=== PATIENT | male | born 1975 | race Caucasian/White ===

== ENCOUNTER 2016-07-07 16:48 | Emergency (ER) | payer BC, OTHER ==
--- NOTE | 2016-07-07 18:16 | UC ---
Skin Complaint HPI - HPI Summary HPI Summary: The patient comes in today for: 1. Right inner thigh: Onset: 1 day. Palliative/provocative: touching it makes it worse. Not touching it makes it better. Quality: Dull burning. Region: Upper inner right thigh. Severity: 3/10 at rest. 7/10 with touching it. Time: Constant. Associated symptoms: Event: He practices [employer] 2 days ago. He stated that he got "knee'ed " in the upper right, anterior thigh. He did not have much pain at that time. However, he noticed more yesterday--last night. He felt a mass. During the day , it did not get any worse. He has not taken anything for it. But the pain has persisted. * - History of Current Complaint Time Seen by Provider: 07/07/16 18:04 Stated Complaint: PERSONAL Hx Obtained From: Patient - Allergy/Home Medications Allergies/Adverse Reactions: Allergies Allergy/AdvReac Type Severity Reaction Status Date / Time No Known Allergies Allergy Verified 07/07/16 18:26 Review of Systems Constitutional: Negative Skin: Negative Eyes: Negative ENT: Negative Respiratory: Negative Cardiovascular: Negative Gastrointestinal: Negative Genitourinary: Negative Musculoskeletal: Arthralgia All Other Systems Reviewed And Are Negative: Yes PMH/Surg Hx/FS Hx/Imm Hx Previously Healthy: Yes - Surgical History Surgical History: None - Family History Known Family History: Negative: Cardiac Disease, Hypertension - Social History Occupation: Employed Full-time Alcohol Use: Weekly Alcohol Amount: 12 Substance Use Type: None Smoking Status (MU): Heavy Every Day Tobacco Smoker Type: Cigarettes Amount Used/How Often: 1/2- 1 ppd Length of Time of Smoking/Using Tobacco: 20 yrs Have You Smoked in the Last Year: Yes Physical Exam Triage Information Reviewed: Yes Appearance: Well-Appearing, No Pain Distress Eyes: Positive: Conjunctiva Clear. Negative: Discharge ENT: Positive: Hearing grossly normal. Negative: Pharyngeal erythema, Nasal congestion, Nasal drainage, TM bulging, TM dull, TM red, Tonsillar swelling, Tonsillar exudate Dental: Negative: Gross Decay/Caries @, Dental Fracture @ Neck: Positive: Supple, Nontender, No Lymphadenopathy. Negative: Nuchal Rigidity Respiratory: Positive: Lungs clear, No respiratory distress, No accessory muscle use. Negative: Crackles, Wheezing Cardiovascular: Positive: RRR, No Murmur Abdomen Description: Positive: Nontender, No Organomegaly, Soft. Negative: Distended, Guarding Musculoskeletal: Positive: Strength Intact, ROM Intact, Other: - In the upper right, anterior thigh, there are no enlarged lymph nodes. There is no ecchymosis or erythema. There is a rounded mass about 1.5 inch in length and 0.5 inch in width. It was at the level of the muscle groups and I was not able to get under it. There was only slight tenderness. Initally, when I had him lay back it did not deflate. There were no varicose veins in the area. He stood again and it stayed the same on exam. However, upon my second examination with him laying down, the mass deflated. Neurological: Positive: Alert, Muscle Tone Normal Psychological: Positive: Normal Response To Family, Age Appropriate Behavior, Consolable Skin: Negative: rashes, breakdown Course/Dx - Course Course Of Treatment: Patient was told that I think he has a right femoral hernia. REcommended that he take pain medication as needed and contact a surgeon for evaluation. - Differential Diagnoses - Skin Complaint Differential Diagnoses: Cellulitis - Diagnoses Provider Diagnoses: Right femoral hernia. Discharge - Discharge Plan Condition: Stable Disposition: HOME Forms: *Work Release Referrals: No Primary Care Phys,NOPCP [Primary Care Provider] - Luis Manuel Lucio MD [Medical Doctor] - As Soon As Possible (Please call Dr. Lucio office tomorow for an evaluation of a possible right femoral hernia. )
[2016-07-07] MEDS ORDERED: Naproxen TAB* 250 MG PO ONE (18:17)
[2016-07-07 18:31] VITALS: BP 113/68
== END 2016-07-07 19:15 | disposition home or self-care (01) ==
LOC: UCCORT 16:48
DX: K41.90 Unilateral femoral hernia, without obstruction or gangrene, not specified as recurrent (principal); Z72.0 Tobacco use
CPT/HCPCS: 99212; A9270-GY; G0463

== ENCOUNTER 2016-07-14 16:27 | Emergency (ER) | payer BC ==
[2016-07-14 16:37] VITALS: BP 118/66
--- NOTE | 2016-07-14 17:03 | UC ---
Respiratory Complaint HPI - HPI Summary HPI Summary: Patient presents to with CC of nasal congestion, sinus pressure, cough with production and fatigue x 3 days. Has not taken anything for the symptoms. He notes being around allergies at work with dust and asbestos. He has had a history of sinus infections as a teenager and hx of allergies, but nothing currently. He denies fevers, but endorses recent sweats and chills. He is otherwise healthy, takes no medications. Cough is not better or worse with lying down. Cough is worse during the day while around particles at work. - History of Current Complaint Chief Complaint: UCRespiratory Stated Complaint: CONGESTION Time Seen by Provider: 07/14/16 16:43 Hx Obtained From: Patient Onset/Duration: Sudden Onset Timing: Constant Severity Initially: Moderate Severity Currently: Moderate Pain Intensity: 2 Pain Scale Used: 0-10 Numeric Character: Cough: Productive Associated Signs And Symptoms: Positive: URI, Nasal Congestion, Sinus Discomfort Related History: Seasonal Allergies - Risk Factors Pulmonary Embolism Risk Factors: Negative Cardiac Risk Factors: Negative Pseudomonas Risk Factors: Negative Tuberculosis Risk Factors: Negative - Allergies/Home Medications Allergies/Adverse Reactions: Allergies Allergy/AdvReac Type Severity Reaction Status Date / Time No Known Allergies Allergy Verified 07/14/16 16:37 PMH/Surg Hx/FS Hx/Imm Hx Previously Healthy: Yes - Surgical History Surgical History: None - Family History Known Family History: Positive: None Negative: Cardiac Disease, Hypertension - Social History Occupation: Employed Full-time Lives: With Family Alcohol Use: Occasionally Alcohol Amount: 12 Substance Use Type: None Smoking Status (MU): Heavy Every Day Tobacco Smoker Type: Cigarettes Amount Used/How Often: 1/2- 1 ppd Length of Time of Smoking/Using Tobacco: 20 yrs Have You Smoked in the Last Year: Yes - Immunization History Most Recent Influenza Vaccination: NONE Most Recent Tetanus Shot: UTD Most Recent Pneumonia Vaccination: N/A Review of Systems Constitutional: Negative Skin: Negative Eyes: Other ENT: Ear Ache, Nasal Discharge Respiratory: Cough Cardiovascular: Negative Gastrointestinal: Negative Motor: Negative Neurovascular: Negative Musculoskeletal: Negative Neurological: Negative Psychological: Negative All Other Systems Reviewed And Are Negative: Yes Physical Exam Triage Information Reviewed: Yes Appearance: Well-Appearing, No Pain Distress, Well-Nourished Vital Signs: Initial Vital Signs Temp 98.8 F 07/14/16 16:31 Pulse 83 07/14/16 16:31 Resp 16 06/06/17 16:31 BP 118/66 07/14/16 16:31 Pulse Ox 98 07/14/16 16:31 Vital Signs Reviewed: Yes Eye Exam: Normal Eyes: Positive: Other: - cobblestoning ENT: Positive: Pharynx normal, Nasal congestion, Nasal drainage Dental Exam: Normal Neck exam: Normal Neck: Positive: Supple, Nontender, No Lymphadenopathy Respiratory Exam: Normal Respiratory: Positive: Chest non-tender, Lungs clear Cardiovascular Exam: Normal Cardiovascular: Positive: RRR Musculoskeletal Exam: Normal Musculoskeletal: Positive: Strength Intact Neurological Exam: Normal Neurological: Positive: Alert Psychological: Positive: Normal Response To Family, Age Appropriate Behavior Skin Exam: Normal Diagnostic Evaluation - Laboratory O2 Sat by Pulse Oximetry: 98 Respiratory Course/Dx - Course Course Of Treatment: Patient presents with cough, congestion, sinus pressure and head cold symptoms x 2-3 days. He has not taken anything for the symptoms. Treatment options discussed. Mucinex twice daily, flonase once daily and allergy medication for sneezing, itching. Patient agrees with plan and is OK for discharge. - Differential Dx/Diagnosis Differential Diagnosis/HQI/PQRI: Bronchitis, Laryngitis, Lower Resp Infection, Sinusitis Provider Diagnoses: Upper respiratory infection Discharge - Discharge Plan Condition: Stable Disposition: HOME Prescriptions: Fluticasone NASAL SPRAY 50MCG* [Flonase NASAL SPRAY 50MCG*] 2 spray BOTH NARES DAILY #1 btl Loratadine [Claritin 10 MG CAP] 10 mg PO DAILY #30 cap guaiFENesin ER TAB [Mucinex*] 600 mg PO BID #30 tab.er Patient Education Materials: Upper Respiratory Infection (ED), Allergies (ED) Referrals: No Primary Care Phys,NOPCP [Primary Care Provider] - Additional Instructions: Humidifier in the home will help. Tylenol for discomfort. Take all medications as directed. Symptoms should resolve in 1-3 weeks. If symptoms become worse, please come back to or go to the ED.
== END 2016-07-14 17:14 | disposition home or self-care (01) ==
LOC: UCCORT 16:27
DX: J06.9 Acute upper respiratory infection, unspecified (principal); F17.210 Nicotine dependence, cigarettes, uncomplicated
CPT/HCPCS: 99212; G0463

== ENCOUNTER 2016-10-30 13:27 | Emergency (ER) | payer BC ==
--- NOTE | 2016-10-30 15:17 | UC ---
Shoulder Pain HPI - History of Current Complaint Chief Complaint: UCUpperExtremity Stated Complaint: LEFT SHOULDER PAIN Time Seen by Provider: 10/30/16 15:11 - Allergies/Home Medications Allergies/Adverse Reactions: Allergies Allergy/AdvReac Type Severity Reaction Status Date / Time No Known Allergies Allergy Verified 10/30/16 14:17 PMH/Surg Hx/FS Hx/Imm Hx - Surgical History Surgical History: None - Family History Known Family History: Positive: None Negative: Cardiac Disease, Hypertension - Social History Alcohol Use: Occasionally Alcohol Amount: 12 Substance Use Type: None Smoking Status (MU): Heavy Every Day Tobacco Smoker Type: Cigarettes Amount Used/How Often: 1/2- 1 ppd Length of Time of Smoking/Using Tobacco: 20 yrs Have You Smoked in the Last Year: Yes - Immunization History Most Recent Influenza Vaccination: NONE Most Recent Tetanus Shot: UTD Most Recent Pneumonia Vaccination: N/A Physical Exam Vital Signs: Initial Vital Signs Temp 98.4 F 10/30/16 14:11 Pulse 80 10/30/16 14:11 Resp 18 10/30/16 14:11 BP 110/61 10/30/16 14:11
--- NOTE | 2016-10-30 16:04 | RAD ---
Indication: Anterior LEFT shoulder pain with movement, clicking with range of motion. Comparison: No relevant prior exams available on the [facility] – [place], [place] PACS for comparison. Technique: Internal and external rotation AP and scapular Y views LEFT shoulder Report: Normal acromioclavicular and glenohumeral joint alignment. Preserved glenohumeral joint space. Negative for fracture, stigmata of calcific tendinopathy, or abnormal soft tissue contour. IMPRESSION: Negative exam.
[2016-10-30 16:10] VITALS: BP 112/68
== END 2016-10-30 16:20 | disposition home or self-care (01) ==
LOC: UCCORT 13:27
DX: M25.512 Pain in left shoulder (principal); F17.210 Nicotine dependence, cigarettes, uncomplicated
CPT/HCPCS: 99212; G0463

== ENCOUNTER 2018-02-11 13:10 | Emergency (ER) | payer BC ==
[2018-02-11 13:28] VITALS: BP 100/60
--- NOTE | 2018-02-11 13:43 | UC ---
FLU HPI - HPI Summary HPI Summary: 43 y/o male with no PMH, no medications, this AM had body aches, chills, diarrhea x 2 episodes, watery brown. no fever, chills. Mild ear pain, R sided pain. - History of Current Complaint Chief Complaint: UCGI Stated Complaint: CHILLS Time Seen by Provider: 02/11/18 13:25 Hx Obtained From: Patient Severity Currently: Mild Severity Initially: Mild Pain Intensity: 0 Pain Scale Used: 0-10 Numeric Associated Signs & Symptoms: Positive: F/C, Myalgia, Diarrhea - Allergy/Home Medications Allergies/Adverse Reactions: Allergies Allergy/AdvReac Type Severity Reaction Status Date / Time No Known Allergies Allergy Verified 02/11/18 13:29 Home Medications: Home Medications Bismuth Subsalicylate [Pepto Bismol] 524 mg PO ONCE PRN 02/11/18 [History Confirmed 02/11/18] PMH/Surg Hx/FS Hx/Imm Hx Previously Healthy: Yes - Surgical History Surgical History: None - Family History Known Family History: Positive: None Negative: Cardiac Disease, Hypertension - Social History Alcohol Use: None Alcohol Amount: 12 Substance Use Type: None Smoking Status (MU): Former Smoker Type: Cigarettes Amount Used/How Often: 1/2- 1 ppd Length of Time of Smoking/Using Tobacco: 20 yrs Have You Smoked in the Last Year: Yes When Did the Patient Quit Smoking/Using Tobacco: 11/08/17 - Immunization History Most Recent Influenza Vaccination: NONE Most Recent Tetanus Shot: UTD Most Recent Pneumonia Vaccination: N/A Review of Systems All Other Systems Reviewed And Are Negative: Yes Constitutional: Positive: Chills, Fatigue ENT: Positive: Ear Ache Gastrointestinal: Positive: Diarrhea, Nausea - resolved Musculoskeletal: Positive: Arthralgia, Myalgia Neurological: Positive: Weakness Is Patient Immunocompromised?: No Physical Exam Triage Information Reviewed: Yes Appearance: No Pain Distress, Well-Nourished, Ill-Appearing - mild Vital Signs: Initial Vital Signs Temp 98.8 F 02/11/18 13:21 Pulse 96 02/11/18 13:21 Resp 20 02/11/18 13:21 BP 100/60 02/11/18 13:21 Pulse Ox 99 02/11/18 13:21 Vital Signs Reviewed: Yes Eyes: Positive: Conjunctiva Clear ENT: Positive: Hearing grossly normal, Pharynx normal, TMs normal - l sided, TM red - right sided, Uvula midline. Negative: Nasal congestion, Nasal drainage, Sinus tenderness Neck: Positive: Supple, Nontender, No Lymphadenopathy Respiratory: Positive: Chest non-tender, Lungs clear, Normal breath sounds, No respiratory distress, No accessory muscle use. Negative: Crackles, Rhonchi, Stridor, Wheezing Cardiovascular: Positive: RRR, No Murmur Abdomen Description: Positive: Nontender, No Organomegaly, Soft. Negative: Bruit Bowel Sounds: Positive: Present Neurological Exam: Normal Skin Exam: Normal Flu Course/Dx - Course Course Of Treatment: rapid flu- negative, viral GI likely, coservative treatment , increase fluids - Differential Dx/Diagnosis Provider Diagnosis: Diarrhea Discharge - Sign-Out/Discharge Documenting (check all that apply): Patient Departure All imaging exams completed and their final reports reviewed: No Studies - Discharge Plan Condition: Fair Disposition: HOME Patient Education Materials: Acute Diarrhea (ED) Forms: *Work Release Referrals: Keith Brothers MD [Primary Care Provider] - Additional Instructions: - Increase fluid intake - TYlenol as needed for body aches, pain - WOrk note given - Return to ER, urgent care with abdominal pains, unable to hold down fluids - Flu Negative - Billing Disposition and Condition Condition: FAIR Disposition: Home
== END 2018-02-11 14:27 | disposition home or self-care (01) ==
LOC: UCCORT 13:10
DX: R19.7 Diarrhea, unspecified (principal)
CPT/HCPCS: 99211; G0463